=== PATIENT | female | born 1965 | race Two or more races ===

== ENCOUNTER → 2025-03-21 | Outpatient (CLI) | payer MEDICARE | LOC: M WUC 12:11 | PROVIDERS: ATTEND Student in an Organized Health Care Education/Training Program | DX: M48.02 Spinal stenosis, cervical region (principal) ==

== ENCOUNTER → 2025-08-12 | Outpatient (REF) | payer OTHER ==
[2025-08-12 18:10] LABS: CREATININE, URINE 93.0 MG/DL; MALB URINE SIEMENS 5.0 MG/L; MAU/CREAT RATIO 5.3 MCG/MG (0.0-30.0)
[2025-08-12 19:12] LABS: ALT/SGPT 29 U/L (7.0-40); AST/SGOT 24 U/L (<34); BASO # 0.0 10^3/uL (0.0-0.2); BASO % 0.8 % (0.0-1.0); CALCIUM LEVEL 8.9 MG/DL (8.3-10.6); CARBON DIOXIDE LEVEL 31 MMOL/L (20-31); CHLORIDE LEVEL 106 MMOL/L (98-107); CHOLESTEROL LEVEL 221 MG/DL (<200); CHOLESTEROL RISK RATIO 4.55 (<5); CREATININE FOR GFR 0.63 MG/DL (0.55-1.30); EOS # 0.1 10^3/uL (0.0-0.5); EOS % 2.1 % (0.0-3.0); GLOMERULAR FILTRATION RATE > 90.0 (>45); LDL CHOLESTEROL 138.5 MG/DL (<100); LYMPH # 1.9 10^3/uL (1.5-5.0); LYMPH % 35.7 % (24.0-44.0); MONO # 0.5 10^3/uL (0.0-0.8); MONO % 8.6 % (2.0-8.0); NEUTROPHILS # 2.7 10^3/uL (1.5-8.5); NEUTROPHILS % 52.6 % (36.0-66.0); NON-HDL-C 172.5 MG/DL; PLATELET COUNT, AUTOMATED 294 10^3/uL (150-450); POTASSIUM SERUM 4.3 MMOL/L (3.5-5.1); SODIUM LEVEL 143 MMOL/L (136-145); TRIGLYCERIDES LEVEL 170 MG/DL (<150)
[2025-08-12 19:18] LABS: ESTIMATED AVERAGE GLUCOSE 117.0 MG/DL (60-110)
== END ==
LOC: M SFHCLERA 10:43
PROVIDERS: ATTEND Student in an Organized Health Care Education/Training Program
DX: I10 Essential (primary) hypertension (principal); E78.5 Hyperlipidemia, unspecified